=== PATIENT | male | born 1990 | race Caucasian/White ===

== ENCOUNTER 2016-10-26 12:40 | Emergency (ER) | payer OTHER ==
[2016-10-26] MEDS ORDERED: NS 0.9% 1000 ML* 1,000 ML IV ONE (13:02)
[2016-10-26] MEDS ORDERED: Iodixanol* (CONTRAST) 320 MG/ML 100 ML SDV IV ONE (13:08)
[2016-10-26 13:21] LABS: Hematocrit 48 % (42-52); Hemoglobin 15.7 g/dl (14.0-18.0); Mean Corpuscular HGB Conc 33 g/dl (31-36); Mean Corpuscular Hemoglobin 28 pg (27-31); Mean Corpuscular Volume 86 fL (80-94); Mean Platelet Volume 9 um3 (7.4-10.4); Red Blood Count 5.59 10^6/ul (4.0-5.4); Red Cell Distribution Width 13 % (10.5-15)
[2016-10-26 13:28] LABS: Add Diff/Slide Review? Slide Review Added; Comments Flag Yes
[2016-10-26 13:36] LABS: ALT 16 U/L (7-52); AST 19 U/L (13-39); Albumin 4.9 g/dL (3.2-5.2); Alkaline Phosphatase 62 U/L (34-104); Anion Gap 10 mmol/L (2-11); BUN/Creatinine Ratio 14.4 (8-20); Blood Urea Nitrogen 14 mg/dL (6-24); CO2 Carbon Dioxide 24 mmol/L (22-32); Calcium 10.4 mg/dL (8.6-10.3); Chloride 101 mmol/L (101-111); EGFR African American 122.3 (>60); EGFR Non-African American 95.1 (>60); Globulin 3.4 g/dL (2-4); Glucose 114 mg/dL (70-100); Potassium 3.9 mmol/L (3.5-5.0); Sodium 135 mmol/L (133-145); Total Protein 8.3 g/dL (6.4-8.9)
[2016-10-26 13:49] LABS: Alcohol < 10 mg/dL (<10)
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
[2016-10-26] MEDS ORDERED: Ketorolac INJ* 30 MG/ML 1 ML VIAL IV PUSH ONE (16:12)
--- NOTE | 2016-10-26 16:25 | RAD ---
INDICATION: Posterior LEFT wrist and anterior LEFT hand first metacarpal region pain following injury. COMPARISON: No relevant prior exams available on the [facility] [place] [facility] for comparison. TECHNIQUE: AP and oblique views LEFT wrist. AP and lateral views LEFT hand. REPORT: Normal articular alignment. No cortical disruption or suspicious trabecular irregularity to suggest fracture. Mild soft tissue swelling about the distal forearm, wrist, and hand without focality. IMPRESSION: Soft tissue swelling without additional finding at the LEFT wrist or hand. Negative for fracture.
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
== END 2016-10-26 16:51 | disposition home or self-care (01) ==
LOC: ED 12:40
DX: T14.90 Injury, unspecified (principal); R07.9 Chest pain, unspecified; R11.2 Nausea with vomiting, unspecified; R55 Syncope and collapse; M79.1 Myalgia; V86.59XA Driver of other special all-terrain or other off-road motor vehicle injured in nontraffic accident, initial encounter; Y93.9 Activity, unspecified; Y92.9 Unspecified place or not applicable; Y99.9 Unspecified external cause status
CPT/HCPCS: 36415; 70450; 71260; 72125; 74177; 80053; 80320; 83605; 85025; 93005; 96374; 99283; G0480; J1885